=== PATIENT | male | born 1940 | race Caucasian/White ===

== ENCOUNTER 2017-06-24 20:39 | Emergency (ER) | payer OTHER ==
[2017-06-24 20:50] VITALS: TEMP 98.4
--- NOTE | 2017-06-24 21:05 | EDPHY ---
H & P Stated Complaint: c/o cough, seen at urgent care, abx for pna, raw shellfish preparer - said go to ed HPI/ROS: CHIEF COMPLAINT: Cough, possible pneumonia HISTORY OF PRESENT ILLNESS: The patient is a 76 y/o male arriving with his family at the recommendation of his raw shellfish preparer for evaluation of possible pneumonia. 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 On Friday he developed a cough and last night he had a fever. Today his family took him to [facility] urgent care for evaluation. He was started on Doxycycline for pneumonia. Chest x-ray was not performed. He then called his raw shellfish preparer in [place] who recommended going to the ED for a chest x-ray to determine if he actually had pneumonia. He's had a mild associated sore throat. He denies chest pain, dyspnea, calf pain or swelling, abdominal pain, vomiting, diarrhea. He did receive a flu vaccination this season. No history of diabetes. REVIEW OF SYSTEMS: A ten point review of systems was performed and is negative with the exception of the items mentioned in the HPI. 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 Remote smoking history. Family at bedside. Retired stage electrician. General Appearance: Alert. Vital signs reviewed. Blood pressure 143/81. Eyes: Pupils equal and round, no conjunctival injection, no discharge. Anicteric. ENT, Mouth: Mucous membranes are moist, no oropharyngeal erythema or edema. Neck: No lymphadenopathy, supple. Respiratory: Lungs have basilar crackles on the right; no wheezes. Good air exchange. Pulse ox 93% on room air. Cardiovascular: Regular rate and rhythm; no murmur, rub, or gallop. Gastrointestinal: Abdomen is soft and nontender, no masses or organomegaly, bowel sounds normal. Skin: Warm and dry, no rashes on exposed skin, normal color. Back: Nontender to palpation over the thoracolumbar spine. No CVAT. Extremities: No lower extremity edema, no calf tenderness or swelling. Neurological: Alert and oriented. Moving all four extremities easily and equally. Resting tremor right hand. Psychiatric: Normal affect. - Medical/Surgical History Hx Asthma: No Hx Chronic Respiratory Disease: No Hx Diabetes: No Hx Cardiac Disease: Yes Hx Renal Disease: No Hx Cirrhosis: No Hx Alcoholism: No Hx HIV/AIDS: No Hx Splenectomy or Spleen Trauma: No Other PMH: RA, parkinsons, hypertension, hyperlipidemia, cardiac stents, bilat carpal tunnel, orif R shoulder, orthoscopic surg R knee, prostate ca - prostatectomy - Social History Smoking Status: Former smoker Constitutional: Initial Vital Signs Temperature (C) 36.9 C 06/24/17 20:42 Heart Rate 77 06/24/17 20:42 Respiratory Rate 16 06/24/17 20:42 Blood Pressure 143/81 H 06/24/17 20:42 O2 Sat (%) 93 06/24/17 20:42 O2 Delivery Mode Room Air Allergies/Adverse Reactions: No Known Allergies Allergy (Unverified 06/24/17 20:50) Home Medications: Medication Instructions Recorded Allopurinol 06/24/17 Aspirin 81mg (*) 06/24/17 Atenolol 06/24/17 Colace 06/24/17 Crestor 06/24/17 Doxycycline Hyclate 06/24/17 Metamucil 06/24/17 Nexium 06/24/17 Norvasc 06/24/17 Oseltamivir Phosphate [Tamiflu] 75 mg PO BID #9 capsule 06/24/17 Medical Decision Making - Diagnostics Imaging: Discussed imaging studies w/ callisthenics instructor Radiologist, I viewed and interpreted images myself ED Course/Re-evaluation: This is a 76 y/o male with CAD and interstitial lung disease who presents for evaluation of a 2-day history of cough and possible pneumonia treated by urgent care. He is generally well-appearing with mild crackles on the right on auscultation. Plan for IV, labs, EKG, chest x-ray. The 12 lead EKG was interpreted by myself. Sinus mechanism rate 65. See hard copy and/or "tracemaster" electronic copy for interpretation. Chest x-ray: Interstitial lung disease. 2200: Reassessed patient and discussed results. He has remained afebrile here. He is feeling well and would like to go home and sleep. I will prescribe an albuterol inhaler to use as needed. He can continue the doxycycline as prescribed if desired. Troponin, BNP, flu swab pending. Patient is flu positive. Troponin and BNP are within normal limits. I discussed the positive flu test the patient and his family. He is being started on Tamiflu. Symptomatic measures were discussed. Danger signs were reviewed. I feel that he can safely return home at this point in time. Differential Diagnosis: I considered a differential diagnosis that includes but is not limited to influenza, pneumonia, bronchitis, COPD, CHF, PE, and heart failure. - Data Points Laboratory Results: Laboratory Results 06/24/17 21:25 06/24/17 21:25 Medications Given: Discontinued Medications Albuterol Sulfate (Proventil Inh Prepack) 1 mdi TAKEHOME EDNOW ONE Stop: 06/24/17 22:03 Last Admin: 06/24/17 22:40 Dose: 1 mdi Oseltamivir Phosphate (Tamiflu) 75 mg PO EDNOW ONE Stop: 06/24/17 22:24 Last Admin: 06/24/17 22:39 Dose: 75 mg Departure - Departure Disposition: Home, Routine, Self-Care Clinical Impression: Cough, Flu Condition: Good Instructions: Albuterol (By breathing), Oseltamivir (By mouth), Influenza (ED) , Acute Cough (ED) Additional Instructions: 1. Use albuterol inhaler as prescribed for cough or shortness of breath. 2. Use Tylenol or ibuprofen as directed if needed for pain or fever. 3. Take Tamiflu as prescribed for flu. This will not cure the flu but it can decrease intensity and length of the illness. 4. You can continue the doxycycline if you would like. 5. Follow up with your primary care provider upon your return home for continue symptoms. 6. Return to the ED for any worsening of condition. Adult Pain & Fever Control: We recommend Acetaminophen (Tylenol) and Ibuprofen (Motrin,Advil) for pain and fever control. When fever is high or pain severe, both drugs can be used at the same time, but at different intervals. Please note the time differences. Your dose is: Acetaminophen 650mg every 4 to 6 hours Ibuprofen 600mg every 600 hours with food Note: do not take Acetaminophen with Hydrocodone (Vicodin, Lortab) or Oxycodone (Percocet). These medications also contain Acetaminophen. No more than 3000mg of Acetaminophen should be taken in 24 hours (for an adult). Referrals: Tristin Toribio MD [Medical Doctor] - As per Instructions Prescriptions: Oseltamivir Phosphate [Tamiflu] 75 mg PO BID #9 capsule Report Scribed for: Eileen Ernandez Report Scribed by: Pita Schmidt Date of Report: 06/24/17 Time of Report: 21:16 Physician Review and Approval Statement: 06/24/17 21:05 Portions of this note were transcribed by the medical office asst. I, Dr. Eileen Ernandez, personally performed the history, physical exam, and medical decision- making; and confirmed the accuracy of the information in the transcribed note.
[2017-06-24 21:34] LABS: PLATELET COUNT 246 10^3/uL (150-400)
--- NOTE | 2017-06-24 21:39 | CPEKG ---
Heart Rate: 65 RR Interval: 923 P-R Interval: 164 QRSD Interval: 88 QT Interval: 408 QTC Interval: 425 P [place]: 8 QRS [place]: 1 T Wave [place]: -10 EKG Severity - BORDERLINE ECG - EKG Impression: SINUS RHYTHM EKG Impression: ATRIAL PREMATURE COMPLEX EKG Impression: BORDERLINE T ABNORMALITIES, INFERIOR LEADS Electronically Signed By: Eileen Ernandez 24-Jun-2017 23:20:24
[2017-06-24] MEDS ORDERED: ALBUTEROL INH PREPACK MDI TAKEHOME ONE (22:02)
[2017-06-24] MEDS ORDERED: OSELTAMIVIR PHOSPHATE 75 MG CAP PO ONE (22:23)
[2017-06-24 22:48] VITALS: BP 116/64; PULSE 63; RESP 18; O2SAT 94
== END 2017-06-24 22:47 | disposition home or self-care (01) ==
DX: J11.1 Influenza due to unidentified influenza virus with other respiratory manifestations (principal); I25.10 Atherosclerotic heart disease of native coronary artery without angina pectoris; Z85.46 Personal history of malignant neoplasm of prostate; Z87.891 Personal history of nicotine dependence; Z79.82 Long term (current) use of aspirin; Z95.5 Presence of coronary angioplasty implant and graft